=== PATIENT | male | born 1950 | race Two or more races ===

== ENCOUNTER 2019-12-07 16:05 | Emergency (ER) | payer MEDICAID ==
[~2019-12-07] VITALS: Ht 172.7 cm; Wt 81.6 kg
[2019-12-07 16:30] VITALS: BP 120/67
--- NOTE | 2019-12-07 16:37 | Emergency Room Report ---
History of Present Illness General Chief Complaint: Male Urogenital Problems Source: Patient, Medical Record Present Illness HPI Patient is a 69-year-old male brought in [facility] for increased suprapubic discomfort. Patient had been having increased pain from Chen catheter. He had not been having any fever. Inflated with 30 cc patient's catheter had been but then had been unable to withdraw fluid from balloon. Urine output had been maintained. Patient is prior history of prostate enlargement. 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 COVID-19 Screening: Negative COVID-19 COVID-19 Testing Source: [employer] swab Patient History Past Medical History: see triage record Reviewed Nursing Documentation: PMH: Agreed; PSxH: Agreed Nursing Documentation-PMH Past Medical History: No History, Except For Hx Hypertension: Yes - BPH History Of Psychiatric Problem: Yes - Schizoaffective disorder, depression Hx Neurological Problems: Yes - Dementia Review of Systems All Other Systems: negative except mentioned in HPI Physical Exam Vital Signs Date Time Temp Pulse Resp B/P (MAP) Pulse Ox O2 Delivery O2 Flow Rate FiO2 12/07/19 16:16 97.3 56 18 121/59 (79) 98 Room Air General Appearance: well appearing, no apparent distress, GCS 15 Head: normocephalic, atraumatic ENT: hearing grossly normal, normal voice Neck: full range of motion, supple Respiratory: no respiratory distress, speaking full sentences Gastrointestinal: normal inspection, soft Genitourinary: other - Circumcised male with slight urethral discharge. Musculoskeletal: no calf tenderness Neurologic: alert, motor strength/tone normal, branch administrator III-XII nml as tested, oriented x3, normal gait Psychiatric: mood/affect normal Skin: no rash Medical Decision Making Diagnostic Impression: Primary Impression: Chen catheter problem ER Course Patient presented for suprapubic pain. Differential diagnosis include was not limited to urinary tract infection, Chen catheter malposition, Chen catheter malfunction among others. Patient has a benign exam and does not appear to require any imaging or laboratory testing at this time. Patient does appear to have some evidence of discharge from the area near the Chen. He was given Keflex p.o. Patient's catheter was removed after deflating the balloon. Bedside ultrasound showed no evidence of urinary retention. Catheter was subsequently changed and patient tolerated this well. Patient will be sent back to his facility on oral antibiotics. He is advised to follow-up with facility physician for recheck. Return if he begins having fever or other concerns. Last Vital Signs Date Time Temp Pulse Resp B/P (MAP) Pulse Ox O2 Delivery O2 Flow Rate FiO2 12/07/19 16:16 97.3 56 18 121/59 (79) 98 Room Air Status: improved Disposition: [facility] J Carlos Moreno MD Dec 07, 2019 16:37
[2019-12-07] MEDS ORDERED: CEPHALEXIN500 MG ORAL (16:38)
[2019-12-07] MEDS ORDERED: Cephalexin 500mg cap ORAL ONE (16:45)
[2019-12-07 16:52] VITALS: BP 128/76
[2019-12-07 16:59] LABS: APPEARANCE,URINE VERY CLOUDY; BILIRUBIN, URINE NEGATIVE (NEGATIVE); COLOR,URINE YELLOW; GLUCOSE, URINE (UA) NEGATIVE (NEGATIVE); KETONES,URINE 1+ (NEGATIVE); LEUKOCYTE ESTERASE ,URINE 3+ (NEGATIVE); NITRITE,URINE POSITIVE (NEGATIVE); PH,URINE 6 (4.5-8.0); PROTEIN,URINE 2+ (NEGATIVE); UROBILINOGEN,URINE NORMAL MG/DL (0.0-1.0)
== END 2019-12-07 16:50 ==
LOC: EDBD 16:05 → EMR 16:45
DX: Z46.6 Encounter for fitting and adjustment of urinary device (principal); F03.90 Unspecified dementia, unspecified severity, without behavioral disturbance, psychotic disturbance, mood disturbance, and anxiety; I10 Essential (primary) hypertension; F32.9 Major depressive disorder, single episode, unspecified; F25.9 Schizoaffective disorder, unspecified; R36.9 Urethral discharge, unspecified
CPT/HCPCS: 51702; 81003; 87086; 87181; Z7502; 99284